=== PATIENT | female | born 1960 | race Two or more races ===

== ENCOUNTER 2017-04-25 08:46 | Emergency (ER) | payer MEDICAID, OTHER ==
[~2017-04-25] VITALS: Ht 165.1 cm; Wt 74.8 kg
[~2017-04-25 08:46] MED LIST: PROP60CA8 PO
[2017-04-25 09:56] VITALS: BP 148/58
== END 2017-04-25 10:40 | disposition home or self-care (01) ==
LOC: ER 08:46
DX: S40.012A Contusion of left shoulder, initial encounter (principal); E11.9 Type 2 diabetes mellitus without complications; E78.5 Hyperlipidemia, unspecified; I10 Essential (primary) hypertension; E07.89 Other specified disorders of thyroid; Z90.49 Acquired absence of other specified parts of digestive tract; Z90.89 Acquired absence of other organs; Z88.0 Allergy status to penicillin; W22.8XXA Striking against or struck by other objects, initial encounter; Y93.89 Activity, other specified; Y99.8 Other external cause status; Y92.89 Other specified places as the place of occurrence of the external cause
CPT/HCPCS: 73000; 73030

== ENCOUNTER 2018-06-21 10:57 | Emergency (ER) | payer OTHER, MEDICAID ==
[~2018-06-21] VITALS: Ht 165.1 cm; Wt 71.7 kg
[~2018-06-21 10:57] MED LIST changes: +PROP60CA34 PO; -PROP60CA8 PO
[2018-06-21 11:43] LABS: Basophils # (auto) 0 uL; Basophils % (auto) 0.2 % (0.0-2.0); Eosinophils # (auto) 0 uL; Hematocrit 41.5 % (36.0-46.0); Hemoglobin 13.6 g/dL (12.2-16.2); Lymphocytes # (auto) 0.8 uL; Lymphocytes % (auto) 25.1 % (10.0-50.0); Mean Corpuscular Hemoglobin 29.5 pg (28.0-32.0); Mean Corpuscular Hgb Conc. 32.8 g/dL (32.0-36.0); Mean Corpuscular Volume 89.9 fL (80.0-100.0); Monocytes # (auto) 0.3 uL; Monocytes % (auto) 8.7 % (0.0-12.0); Neutrophils # (auto) 2.2 uL; Nucleated Red Blood Cells % 0.2 %; Platelet Count (auto) 274 10^3/uL (140-450); Red Blood Cells 4.61 10^6/uL (4.0-5.20); White Blood Cell 3.3 10^3/uL (4.4-10.8)
[2018-06-21 12:07] LABS: Albumin 4.1 g/dL (3.4-5.0); Anion Gap 6 (5-15); Blood Urea Nitrogen 8 mg/dL (7-18); Calcium 9.1 mg/dL (8.5-10.1); Carbon Dioxide 26 mmol/L (21-32); Chloride 102 mmol/L (98-107); Glucose 133 mg/dL (74-106); Magnesium 2.2 mg/dL (1.6-2.6); Potassium 3.9 mmol/L (3.5-5.1); Sodium 134 mmol/L (136-145)
[2018-06-21 12:12] LABS: Alanine Aminotransferase 24 U/L (13-56); Alkaline Phosphatase 49 U/L (45-117); Aspartate Aminotransferase 14 U/L (15-37); BUN/Creatinine Ratio 13.1; Bilirubin, Total 0.4 mg/dL (0.2-1.0); GFR African American 130 mL/min; GFR Non-African American 107 mL/min; Total Protein 7.6 g/dL (6.4-8.2)
[2018-06-21 12:55] LABS: Urine Bacteria MANY /hpf (None Seen); Urine Blood Negative /uL (Negative); Urine Specific Gravity 1.005 (1.001-1.035); Urine WBC 5 /hpf (0 - 5)
[2018-06-21 14:53] VITALS: BP 131/78
== END 2018-06-21 15:02 | disposition home or self-care (01) ==
LOC: ER 10:57 → EDUNIT# 10:57 → EDBD 10:57 → ER 15:02
DX: R55 Syncope and collapse (principal); M19.90 Unspecified osteoarthritis, unspecified site; J45.909 Unspecified asthma, uncomplicated; E11.9 Type 2 diabetes mellitus without complications; E78.5 Hyperlipidemia, unspecified; I10 Essential (primary) hypertension; E07.9 Disorder of thyroid, unspecified; Z90.49 Acquired absence of other specified parts of digestive tract; Z88.0 Allergy status to penicillin; Z98.51 Tubal ligation status
CPT/HCPCS: 36415; 70450; 71045; 80053; 81001; 83735; 84484; 85025; 93005; 94761

== ENCOUNTER 2018-07-17 11:39 | Emergency (ER) | payer MEDICAID ==
[~2018-07-17] VITALS: Ht 167.6 cm; Wt 71.2 kg
[2018-07-17 13:12] VITALS: BP 139/90
[2018-07-17] MEDS ORDERED: ACETAMINOPHEN 500 MG TAB PO ONE (14:15)
== END 2018-07-17 14:43 | disposition home or self-care (01) ==
LOC: ER 11:39 → EDBD 11:39 → ER 14:43
DX: G44.209 Tension-type headache, unspecified, not intractable (principal); M19.90 Unspecified osteoarthritis, unspecified site; J45.909 Unspecified asthma, uncomplicated; E11.9 Type 2 diabetes mellitus without complications; E78.5 Hyperlipidemia, unspecified; I10 Essential (primary) hypertension
CPT/HCPCS: 70450; 93005

== ENCOUNTER 2020-07-01 17:58 | Emergency (ER) | payer MEDICAID ==
[~2020-07-01] VITALS: Ht 165.1 cm; Wt 71.2 kg
[2020-07-01 18:47] LABS: Urine Bacteria MOD /hpf (None Seen); Urine Blood Negative /uL (Negative); Urine Specific Gravity 1.005 (1.001-1.035); Urine WBC 1 /hpf (0 - 5)
[2020-07-01 21:21] LABS: Basophils # (auto) 0 10 ^3/uL (0-0.2); Basophils % (auto) 0.5 % (0.0-2.0); Eosinophils # (auto) 0.1 10 ^3/uL (0-0.8); Eosinophils % (auto) 2.1 % (0.0-7.0); Hematocrit 39.4 % (36.0-46.0); Hemoglobin 13.5 g/dL (12.2-16.2); Lymphocytes # (auto) 1.9 10 ^3/uL (0.4-5.4); Lymphocytes % (auto) 43.7 % (10.0-50.0); Mean Corpuscular Hemoglobin 30.9 pg (28.0-32.0); Mean Corpuscular Hgb Conc. 34.3 g/dL (32.0-36.0); Mean Corpuscular Volume 89.9 fL (80.0-100.0); Monocytes # (auto) 0.4 10 ^3/uL (0-1.3); Monocytes % (auto) 9.8 % (0.0-12.0); Neutrophils # (auto) 1.9 10 ^3/uL (1.6-8.6); Neutrophils % (auto) 43.9 % (37.0-80.0); Nucleated Red Blood Cells % 0.2 %; Platelet Count (auto) 268 10^3/uL (140-450); Red Blood Cells 4.39 10^6/uL (4.0-5.20); Red Cell Distribution Width 14.4 % (11.8-14.3); White Blood Cell 4.2 10^3/uL (4.4-10.8)
[2020-07-01 21:44] LABS: BUN/Creatinine Ratio 13.7; Calcium 9.4 mg/dL (8.5-10.1); Potassium 4.2 mmol/L (3.5-5.1)
[2020-07-01 21:47] LABS: Bilirubin, Total 0.3 mg/dL (0.2-1.0); Total Protein 7.8 g/dL (6.4-8.2)
[2020-07-01 22:24] VITALS: BP 109/70
== END 2020-07-01 22:39 | disposition home or self-care (01) ==
LOC: ER 17:58
DX: N20.9 Urinary calculus, unspecified (principal); E11.9 Type 2 diabetes mellitus without complications; E78.5 Hyperlipidemia, unspecified; I10 Essential (primary) hypertension; Z90.49 Acquired absence of other specified parts of digestive tract; Z98.51 Tubal ligation status; Z88.0 Allergy status to penicillin
CPT/HCPCS: 36415; 74176; 80053; 81001; 82150; 83690; 83735; 85025; 93005

== ENCOUNTER 2020-09-03 17:23 | Inpatient (IN) | payer MEDICAID ==
[~2020-09-03] VITALS: Ht 170.2 cm; Wt 69.6 kg
[2020-09-03] MEDS ORDERED: ASPirin 81 mg TAB PO ONE (18:30)
[2020-09-03 18:57] LABS: Basophils # (auto) 0 10 ^3/uL (0-0.2); Basophils % (auto) 0.8 % (0.0-2.0); Eosinophils # (auto) 0 10 ^3/uL (0-0.8); Eosinophils % (auto) 0.7 % (0.0-7.0); Hematocrit 39.7 % (36.0-46.0); Hemoglobin 13.7 g/dL (12.2-16.2); Lymphocytes # (auto) 1.1 10 ^3/uL (0.4-5.4); Lymphocytes % (auto) 25.5 % (10.0-50.0); Mean Corpuscular Hemoglobin 30.3 pg (28.0-32.0); Mean Corpuscular Hgb Conc. 34.5 g/dL (32.0-36.0); Mean Corpuscular Volume 87.8 fL (80.0-100.0); Monocytes # (auto) 0.4 10 ^3/uL (0-1.3); Monocytes % (auto) 8.1 % (0.0-12.0); Neutrophils # (auto) 2.9 10 ^3/uL (1.6-8.6); Neutrophils % (auto) 64.9 % (37.0-80.0); Nucleated Red Blood Cells % 0.2 %; Platelet Count (auto) 272 10^3/uL (140-450); Red Blood Cells 4.52 10^6/uL (4.0-5.20); Red Cell Distribution Width 13.9 % (11.8-14.3); White Blood Cell 4.5 10^3/uL (4.4-10.8)
[2020-09-03 19:11] LABS: INR 0.94 (0.9-1.15)
[2020-09-03 19:12] LABS: Alanine Aminotransferase 24 U/L (13-56); Albumin 3.6 g/dL (3.4-5.0); Anion Gap 11 (5-15); Aspartate Aminotransferase 12 U/L (15-37); BUN/Creatinine Ratio 20.5; Blood Urea Nitrogen 15 mg/dL (7-18); Calcium 8.8 mg/dL (8.5-10.1); Carbon Dioxide 23 mmol/L (21-32); Chloride 101 mmol/L (98-107); GFR African American 105 mL/min; GFR Non-African American 87 mL/min; Glucose 183 mg/dL (74-106); Magnesium 1.8 mg/dL (1.6-2.6); Potassium 3.9 mmol/L (3.5-5.1); Sodium 135 mmol/L (136-145)
[2020-09-03 19:17] LABS: Alkaline Phosphatase 62 U/L (45-117); Bilirubin, Total 0.2 mg/dL (0.2-1.0); Total Protein 7.7 g/dL (6.4-8.2)
[2020-09-03] MEDS ORDERED: cefTRIAXone 1GM/50ML D5W 50 ML IV ONE (21:15)
[2020-09-03] MEDS ORDERED: MORPHINE SULF INJ 2 MG/ML SYRINGE 1ML IV PRN (23:45)
[2020-09-03] MEDS ORDERED: NITROGLYCERIN 0.4 MG SL TAB SL PRN (23:45)
[2020-09-03] MEDS ORDERED: DOCUSATE SOD 100 MG CAP PO PRN (23:45)
[2020-09-03] MEDS ORDERED: DEXTROSE (50%) 50ML SYRG IV PRN (23:45)
[2020-09-03] MEDS ORDERED: ONDANSETRON HCL 4 MG/2 ML VIAL IV PRN (23:45)
[2020-09-03] MEDS ORDERED: ACETAMINOPHEN 325 MG TAB PO PRN (23:45)
[2020-09-03] MEDS ORDERED: TEMAZEPAM 15 MG CAP PO PRN (23:45)
[2020-09-03] MEDS ORDERED: HYDROcodone-ACET 5/325MG TAB PO PRN (23:45)
[2020-09-04 01:53] LABS: Lactic Acid w/Reflex 2.8 mmol/L (0.4-2.0)
[2020-09-04 03:53] VITALS: BP 134/88
[2020-09-04 04:42] LABS: Basophils # (auto) 0 10 ^3/uL (0-0.2); Basophils % (auto) 0.5 % (0.0-2.0); Eosinophils # (auto) 0.1 10 ^3/uL (0-0.8); Eosinophils % (auto) 1.2 % (0.0-7.0); Hematocrit 40.6 % (36.0-46.0); Lymphocytes # (auto) 1.5 10 ^3/uL (0.4-5.4); Lymphocytes % (auto) 32.1 % (10.0-50.0); Mean Corpuscular Hemoglobin 30.4 pg (28.0-32.0); Mean Corpuscular Hgb Conc. 34.5 g/dL (32.0-36.0); Monocytes # (auto) 0.4 10 ^3/uL (0-1.3); Monocytes % (auto) 9.1 % (0.0-12.0); Neutrophils # (auto) 2.6 10 ^3/uL (1.6-8.6); Neutrophils % (auto) 57.1 % (37.0-80.0); Nucleated Red Blood Cells % 0.1 %; Platelet Count (auto) 275 10^3/uL (140-450); Red Blood Cells 4.61 10^6/uL (4.0-5.20); Red Cell Distribution Width 13.5 % (11.8-14.3); White Blood Cell 4.6 10^3/uL (4.4-10.8)
[2020-09-04 04:53] LABS: Albumin 3.9 g/dL (3.4-5.0); Calcium 9.3 mg/dL (8.5-10.1)
[2020-09-04 04:57] LABS: BUN/Creatinine Ratio 20.3; Bilirubin, Total 0.3 mg/dL (0.2-1.0); Total Protein 7.6 g/dL (6.4-8.2)
[2020-09-04] MEDS ORDERED: ESTR0.5T3 PO (04:57)
[2020-09-04] MEDS ORDERED: AMIT25TA10 PO (04:57)
[2020-09-04] MEDS ORDERED: LORA-483 PO (04:57)
[2020-09-04] MEDS ORDERED: CHOL20002 PO (04:57)
[2020-09-04] MEDS ORDERED: LOSA-69 PO (04:57)
[2020-09-04] MEDS ORDERED: GLIP10TA9 PO (04:57)
[2020-09-04] MEDS ORDERED: PROG1CAP2 PO (04:57)
[2020-09-04] MEDS ORDERED: METF-371 PO (04:57)
[2020-09-04 05:00] VITALS: BP 134/88
[2020-09-04] MEDS ORDERED: BUSP15TA60 PO (05:29)
[2020-09-04] MEDS: SODIUM CHLOR 0.9% PF (SALINE LOCK) 10ML VIAL/SYR IV SCH ×3 (06:00→21:39)
[2020-09-04] MEDS: LEVOTHYROXINE SODIUM 50 MCG TAB PO SCH (06:30)
[2020-09-04] MEDS: InsuLIN REG 1unit/0.01ml Soln (100units/ml) SC SCH ×4 (06:33→21:43)
[2020-09-04] MEDS: ACCU-CHEK COMFORT CURVE STRIP VI SCH ×4 (06:46→21:39)
[2020-09-04 08:00] VITALS: BP 142/82
[2020-09-04 09:00] VITALS: BP 142/82
[2020-09-04] MEDS: ENOXAPARIN SOD 40 MG/0.4 ML SYRINGE SC SCH (10:00)
[2020-09-04] MEDS ORDERED: AZITHROMYCIN 500MG/ 250ML 250 ML IV SCH (10:00)
[2020-09-04] MEDS: ASCORBIC ACID 500 MG TAB PO SCH ×2 (10:25→21:38)
[2020-09-04] MEDS: ZINC SULFATE 220mg CAP or TAB PO SCH (10:25)
[2020-09-04] MEDS: MULTIPLE VITAMIN TAB PO SCH (10:25)
[2020-09-04] MEDS: FAMOTIDINE 20 MG TAB PO SCH ×2 (10:25→21:38)
[2020-09-04] MEDS ORDERED: LOSARTAN POTASSIUM 25 MG TAB PO ONE (10:45)
[2020-09-04] MEDS ORDERED: levoFLOXacin 500MG 100 ML IV ONE (11:00)
[2020-09-04] MEDS: [UNRECOGNIZED DRUG - OTHER] PO SCH (16:00)
[2020-09-04] MEDS ORDERED: ESTRADIOL 1 MG TAB PO ONE (16:45)
[2020-09-04 16:58] VITALS: BP 129/85
[2020-09-04] MEDS: busPIRone HCL 10 MG TAB PO SCH (21:38)
[2020-09-04] MEDS: PROGESTERONE 200 MG PO SCH (21:39)
[2020-09-04 22:00] VITALS: BP 116/86
[2020-09-05 05:00] VITALS: BP 123/80
[2020-09-05] MEDS: SODIUM CHLOR 0.9% PF (SALINE LOCK) 10ML VIAL/SYR IV SCH ×3 (05:50→21:45)
[2020-09-05] MEDS: LEVOTHYROXINE SODIUM 50 MCG TAB PO SCH (06:26)
[2020-09-05] MEDS: ACCU-CHEK COMFORT CURVE STRIP VI SCH ×4 (06:27→21:45)
[2020-09-05] MEDS: InsuLIN REG 1unit/0.01ml Soln (100units/ml) SC SCH ×4 (06:29→21:47)
[2020-09-05 09:00] VITALS: BP 115/79
[2020-09-05] MEDS: ZINC SULFATE 220mg CAP or TAB PO SCH (09:15)
[2020-09-05] MEDS: levoFLOXacin 500MG 100 ML IV SCH (09:15)
[2020-09-05] MEDS: busPIRone HCL 10 MG TAB PO SCH ×2 (09:17→21:45)
[2020-09-05] MEDS: MULTIPLE VITAMIN TAB PO SCH (09:18)
[2020-09-05] MEDS: FAMOTIDINE 20 MG TAB PO SCH ×2 (09:18→21:45)
[2020-09-05] MEDS: LOSARTAN POTASSIUM 25 MG TAB PO SCH (09:18)
[2020-09-05] MEDS: ASCORBIC ACID 500 MG TAB PO SCH ×2 (09:18→21:45)
[2020-09-05] MEDS: ENOXAPARIN SOD 40 MG/0.4 ML SYRINGE SC SCH ×2 (09:20→09:26)
[2020-09-05] MEDS ORDERED: ESTRADIOL 1 MG TAB PO SCH (10:00)
[2020-09-05 12:00] VITALS: BP 126/79
[2020-09-05] MEDS: [UNRECOGNIZED DRUG - OTHER] PO SCH (16:36)
[2020-09-05] MEDS: PROGESTERONE 200 MG PO SCH (16:41)
[2020-09-05 17:00] VITALS: BP 112/73
[2020-09-05 22:03] VITALS: BP 116/64
[2020-09-05] MEDS: INSULIN LANTUS (GLARGINE) 1 /0.01ml (100units/ml) SC SCH (22:41)
[2020-09-06 05:53] VITALS: BP 101/64
[2020-09-06] MEDS: ACCU-CHEK COMFORT CURVE STRIP VI SCH ×2 (06:46→12:02)
[2020-09-06] MEDS: InsuLIN REG 1unit/0.01ml Soln (100units/ml) SC SCH ×2 (06:47→12:02)
[2020-09-06] MEDS: SODIUM CHLOR 0.9% PF (SALINE LOCK) 10ML VIAL/SYR IV SCH (06:48)
[2020-09-06] MEDS: LEVOTHYROXINE SODIUM 50 MCG TAB PO SCH (06:48)
[2020-09-06 09:00] VITALS: BP 127/72
[2020-09-06] MEDS: MULTIPLE VITAMIN TAB PO SCH (10:00)
[2020-09-06] MEDS: ASCORBIC ACID 500 MG TAB PO SCH (10:00)
[2020-09-06] MEDS: ZINC SULFATE 220mg CAP or TAB PO SCH (10:00)
[2020-09-06] MEDS: ENOXAPARIN SOD 40 MG/0.4 ML SYRINGE SC SCH (10:00)
[2020-09-06] MEDS: levoFLOXacin 500MG 100 ML IV SCH (10:45)
[2020-09-06] MEDS: LOSARTAN POTASSIUM 25 MG TAB PO SCH (10:49)
[2020-09-06] MEDS: busPIRone HCL 10 MG TAB PO SCH (10:50)
[2020-09-06] MEDS: FAMOTIDINE 20 MG TAB PO SCH (10:50)
[2020-09-06] MEDS: INSULIN LANTUS (GLARGINE) 1 /0.01ml (100units/ml) SC SCH (12:02)
[2020-09-06 13:00] VITALS: BP 114/74
[2020-09-06] MEDS ORDERED: LEVO750T8 PO (14:49)
[2020-09-06 15:26] VITALS: BP 114/74
[2020-09-06] MEDS: [UNRECOGNIZED DRUG - OTHER] PO SCH (16:00)
== END 2020-09-06 16:55 | disposition home or self-care (01) | DRG 139 ==
LOC: ER 17:23 → EDBD 17:23 → WEST WING 23:49
PROVIDERS: ADMIT Nurse Practitioner Family; ATTEND Internal Medicine
DX: J18.9 Pneumonia, unspecified organism (principal); E11.65 Type 2 diabetes mellitus with hyperglycemia; Z20.822 Contact with and (suspected) exposure to COVID-19; E78.5 Hyperlipidemia, unspecified; I10 Essential (primary) hypertension; E03.9 Hypothyroidism, unspecified; F41.9 Anxiety disorder, unspecified; Z90.49 Acquired absence of other specified parts of digestive tract; Z98.51 Tubal ligation status; Z79.899 Other long term (current) drug therapy; Z88.0 Allergy status to penicillin; Z88.7 Allergy status to serum and vaccine; Z88.8 Allergy status to other drugs, medicaments and biological substances
CPT/HCPCS: 36415; 71045; 80053; 82962; 83036; 83605; 83735; 83880; 84443; 84484; 85025; 85379; 85610; 85730; 87040; 87426; 93005; 96365; G0378; J0696; J1815; J1956